=== PATIENT | male | born 1950 | race Caucasian/White ===

== ENCOUNTER 2024-04-22 11:32 | Day surgery (SDC) | payer MEDICARE, BC, SELFPAY ==
--- NOTE | 2024-04-17 12:56 | SUR.PREOP ---
1256: LM with [facility] for clearance.
[2024-04-22] MEDS: LACTATED RINGERS 1000ML 1,000 ML 100 ML IV (12:47)
[2024-04-22 12:52] VITALS: BP 122/95; PULSE 63; RESP 18; TEMP 36.2; O2SAT 95; BMI 27.6
--- NOTE | 2024-04-22 13:21 | EXP.ANES.CKL ---
[facility] Disclaimer: The information contained in this section may have been updated after the patient was seen, as this information can be updated by other users. Medical History Functional dyspepsia IBS (irritable bowel syndrome) History of adenomatous polyp of colon Surgical History History of lung transplant Family History Other No significant family history Social History Smoking Status: Never smoker alcohol intake: never substance use type: denies use current occupational status: retired Travel in the last 8 weeks: Inside the [facility] Anesthesia Checklist Patient Identification Patient Identification: Arm Band, Family and Verbal (Name & ) Structural Data Admitted From: Home Planned Operative Procedure/s: EGD Consent for Planned Operative Procedure(s) Verified: Yes Verified Documents: Surgical Consent and History and Physical NPO Status Verified Time NPO: 16:00 Additional verifications Patient : No Anesthesia Reactions: Yes (+PONV) Cardiovascular Assessment Heart Sounds: S1 & S2 Pulse Rhythm: Irregular Peripheral Edema: No Airway Assessment Mallampati Score:: Class II C-Spine Mobility Assessed: Yes (FROM demonstrated) TMJ Mobility Assessed: Yes Dentition: Good Dentition (Nothing loose per pt.) Neurological Assessment Level of Consciousness: Awake, Alert, Appropriate and Follows Commands Hx Seizures: No Numbness or tingling in extremities: No Anesthesia Plan Anesthesia Risk discussed: Yes Anesthesia Plan: Verified ASA Class: IV Anesthesia Type: MAC
[2024-04-22] MEDS: ONDANSETRON 4MG/2ML VIAL 4 MG IV (13:53)
[2024-04-22 14:06] VITALS: O2SAT 95
--- NOTE | 2024-04-22 14:19 | P.PCN_ITS ---
[facility] Procedure Note Date: 04/22/24 Time: 14:19 Procedure Note:: Upper Endoscopy Procedure Report: Esophagogastroduodenoscopy with cold biopsies and TTS balloon dilation Endoscopost: Alessandro Quarles II, MD Referring Physician: Jesus Gutierrez MD Date of Procedure: April 22, 2024 Equipment: Olympus GIF 190 standard upper endoscope Sedation: MAC sedation Indications: Mr. Irene is a 74-year-old gentleman with pulmonary fibrosis and has had unilateral left lung transplant. He does have a long history of dyspepsia and IBS. He also had Keila fundoplication after his lung transplant to prevent GERD. He has had new symptoms including dysphagia, gagging and frequent clearance of the throat with hard swallowing. He previously had a Schatzki's ring that was dilated. He reports some belching and weight loss. He reports some early satiety. He does have some dysphagia/intermittent swallowing difficulties to both solids and liquids. He has no abdominal pain. Procedure: Prior to the procedure, a history and physical exam was performed, and patient's medications and allergies were reviewed. The risks, benefits and alternatives of the sedation and procedure were discussed with the patient. All questions were answered and informed consent was obtained. The patient was brought to the procedure room. Patient identification and proposed procedure were verified by the physician and the nurse. The patient was placed in a left lateral decubitus position and the scope was passed under direct vision. Throughout the procedure, the patient's blood pressure, pulse, and oxygen saturations were monitored continuously. The upper GI endoscopy was accomplished without di fficulty. The patient tolerated the procedure well. Findings: The scope was passed directly into the upper esophagus and advanced to the third portion of the duodenum. The post bulbar duodenum and duodenal bulb were normal with normal mucosa and conniventes. The scope was withdrawn through a normal duodenal bulb and pylorus into the stomach. There was some linear reactive gastropathy of the antrum (moderate) and biopsies were taken from the antrum. The body and fundus of the stomach were grossly normal. Upon retroflexion there was an intact fundoplication with no hiatal hernia. The scop e was then withdrawn into the esophagus. There was no evidence of reflux esophagitis or Eckert's. There were strong tertiary contractions and evidence of moderate esophageal dysmotility. The entire esophagus was dilated to 60 Romansh/20 mm with a TTS hydrostatic balloon. There was some resistance at the cricopharyngeus/cricopharyngeal spasm. The remainder of the esophageal mucosa was normal. Impression: 1. Cricopharyngeal spasm status post dilation to 20 mm 2. Nonerosive GERD with moderate esophageal dysmotility and intact fundoplication 3. Linear reactive gastropathy of antrum Plan: I will follow-up the biopsies. I do feel the patient has some functional GERD which may contribute to gastroduodenal reflux with aspiration. This gastroduodenal reflux can also lead to some esophageal spasm/dysmotility and cricopharyngeal spasm. I will discuss the findings with the patient and family. I would like for him to remain on the MiraLAX plus Citrucel daily and Beano. I will also add Iberogast. He does take pantoprazole daily.
[2024-04-22 14:31] VITALS: BP 111/64; PULSE 84; RESP 18; TEMP 36.7; O2SAT 94
[2024-04-22 14:41] VITALS: BP 135/80; PULSE 79; RESP 18; O2SAT 98
[2024-04-22 14:51] VITALS: BP 149/98; PULSE 75; RESP 18; O2SAT 98
[2024-04-22 15:01] VITALS: BP 140/99; PULSE 75; RESP 18; O2SAT 98
== END 2024-04-22 15:21 | disposition home or self-care (01) ==
PROVIDERS: PCP Internal Medicine Pulmonary Disease; Visit Provider Internal Medicine Gastroenterology
PROC: 0DJ08ZZ Inspection of Upper Intestinal Tract, Via Natural or Artificial Opening Endoscopic (ICD-10-PCS; CPT 43235; principal; 2024-04-22 14:00)
DX: R10.13 Epigastric pain (principal); K58.9 Irritable bowel syndrome, unspecified; R13.10 Dysphagia, unspecified; R14.2 Eructation; R63.4 Abnormal weight loss; R68.81 Early satiety; Q39.2 Congenital tracheo-esophageal fistula without atresia; K21.9 Gastro-esophageal reflux disease without esophagitis; K22.4 Dyskinesia of esophagus; K31.9 Disease of stomach and duodenum, unspecified; Z68.27 Body mass index [BMI] 27.0-27.9, adult
CPT/HCPCS: 43239; 43249; 88305; C1726; J2405; J7120